=== PATIENT | female | born 1980 | race African-American/Black ===

== ENCOUNTER 2023-04-06 12:39 | Emergency (ER) | payer MEDICAID ==
[~2023-04-06] VITALS: Ht 177.8 cm; Wt 111.0 kg
[2023-04-06 13:01] VITALS: TEMP 98.6
[2023-04-06] MEDS ORDERED: IPRATROPIUM BROMIDE (0.02%) 0.5MG/2.5ML NEB HHN STA (14:43)
[2023-04-06] MEDS ORDERED: ALBUTEROL (0.083%) 2.5MG/3ML NEB HHN STA (14:43)
[2023-04-06] MEDS ORDERED: PREDNISONE 20MG TABLET PO STA (14:43)
[2023-04-06] MEDS ORDERED: ALBU6.7H3 INH (15:25)
[2023-04-06] MEDS ORDERED: AZIT250T MT (15:25)
[2023-04-06] MEDS ORDERED: P50 MT (15:25)
[2023-04-06] MEDS ORDERED: ALBU05 NEB (15:25)
[2023-04-06 15:44] VITALS: PULSE 88; RESP 22; O2SAT 100
[2023-04-06 17:41] VITALS: BP 192/113; RESP 16
== END 2023-04-06 17:52 | disposition home or self-care (01) ==
LOC: ER 12:55
DX: J45.901 Unspecified asthma with (acute) exacerbation (principal); B34.9 Viral infection, unspecified; I10 Essential (primary) hypertension; Z88.1 Allergy status to other antibiotic agents
CPT/HCPCS: 71045; 94644; 99285; J7512; Z7610 ×2